=== PATIENT | male | born 1990 | race Caucasian/White ===

== ENCOUNTER 2024-08-28 16:12 | Observation (INO) ==
[2024-08-28] MEDS: NS 0.9% 1000 ml BAG 2,000 ML IV ONE (17:12)
[2024-08-28 17:22] LABS: Hematocrit 58.4 % (38-53); Hemoglobin 19.1 g/dL (13.2-16.3); Mean Corpuscular Hgb Conc 32.7 g/dL (31-36); Mean Platelet Volume 9.5 fL (7.5-11.2); Platelet Count 206 10^3/uL (150-450); Red Blood Count 6.57 10^6/uL (4.06-5.63); White Blood Count 18.3 10^3/uL (3.6-10.2)
[2024-08-28 17:27] LABS: INR 1.12 (0.85-1.14)
[2024-08-28] MEDS: methylPREDNISolone SOD SUCC 125 mg 2 ML VIAL IV ONE (17:35)
[2024-08-28] MEDS: EPINEPHrine Anaphylaxis SYR CERTADOSE SYR KIT IM ONE (17:36)
[2024-08-28 18:02] LABS: ALT 16 U/L (7-52); Albumin/Globulin Ratio 1.9 (1-3); Alkaline Phosphatase 89 U/L (35-149); Blood Urea Nitrogen 23 mg/dL (6-24); C Reactive Protein 58.31 mg/L (<8.01); CO2 Carbon Dioxide 19 mmol/L (22-32); Chloride 101 mmol/L (101-111); Creatinine, Serum 1.22 mg/dL (0.67-1.17); Globulin 2.1 g/dL (2-4); Glucose 162 mg/dL (70-100); Sodium 132 mmol/L (135-145); Total Bilirubin 0.5 mg/dL (0.2-1.0); Total Protein 6.1 g/dL (6.4-8.9); eGFR CKD-EPI 79.8 (>60)
[2024-08-28 18:04] LABS: ABS Eosinophils 0.1 10^3/uL (0.0-0.5); ABS Lymphocytes 1.2 10^3/uL (1.0-4.8); ABS Monocytes 1.6 10^3/uL (0.0-1.1); ABS Neutrophils 15.4 10^3/uL (1.5-7.6); ABS Nucleated RBC 0.02 10^3/ul; Eosinophil % 0.7 %; Lymphocyte % 6.4 %; Nucleated Red Blood Cells % 0.1 %/100WBC (0.0-0.8)
[2024-08-28 18:09] LABS: HCG Pregnancy < 0.60 mIU/mL
[2024-08-28 18:22] LABS: Anion Gap 12 mmol/L (2-16)
[2024-08-28] MEDS: Iohexol 350 (CONTRAST) 500 ML MDV IV ONE (18:45)
[2024-08-28 20:22] LABS: Potassium Redraw 3.8 mmol/L (3.5-5.0)
[2024-08-28 20:36] LABS: Urine Appearance Clear; Urine Bilirubin Negative (Negative); Urine Blood Negative (Negative); Urine Color Light-Yellow; Urine Glucose Negative (Negative); Urine Ketones Negative (Negative); Urine Nitrite Negative (Negative); Urine Protein Negative (Negative); Urine Specific Gravity 1.049 (1.002-1.030); Urine Urobilinogen Negative (Negative); Urine pH 6.5 (5.0-8.0)
[2024-08-28] MEDS: Famotidine IV 10 MG/ML 2 ml VIAL (20 mg) IV SLOW PU SCH (21:11)
[2024-08-28] MEDS: Nicotine PATCH 21 MG/24 HR PATCH TRANSDERM SCH (23:01)
[2024-08-29] MEDS: Morphine 4 MG/ML VIAL (1 ml) IV PRN (02:32)
[2024-08-29 04:59] LABS: ABS Eosinophils 0.1 10^3/uL (0.0-0.5); ABS Lymphocytes 0.9 10^3/uL (1.0-4.8); ABS Monocytes 0.8 10^3/uL (0.0-1.1); ABS Neutrophils 9.4 10^3/uL (1.5-7.6); ABS Nucleated RBC 0.01 10^3/ul; Eosinophil % 1.1 %; Hematocrit 46.4 % (38-53); Hemoglobin 15.7 g/dL (13.2-16.3); Lymphocyte % 8.2 %; Mean Corpuscular Hemoglobin 29.1 pg (27-33); Mean Corpuscular Hgb Conc 33.8 g/dL (31-36); Mean Corpuscular Volume 86.1 fL (80-97); Mean Platelet Volume 9.5 fL (7.5-11.2); Nucleated Red Blood Cells % 0.1 %/100WBC (0.0-0.8); Platelet Count 184 10^3/uL (150-450); Red Blood Count 5.39 10^6/uL (4.06-5.63); Red Cell Distribution Width 13.5 % (12-17); White Blood Count 11.2 10^3/uL (3.6-10.2)
[2024-08-29 05:51] LABS: Calcium 8.1 mg/dL (8.6-10.3); Creatinine, Serum 0.8 mg/dL (0.67-1.17); Magnesium 1.5 mg/dL (1.9-2.7); Potassium 4.3 mmol/L (3.5-5.0); eGFR CKD-EPI 119.1 (>60)
[2024-08-29] MEDS: Magnesium Sulf 4 GM/100 ML IV 4,000 MG/100 ML BAG IVPB ONE (08:02)
[2024-08-29] MEDS: Nicotine GUM 4MG FRUIT FLAVOR PO PRN (10:18)
[2024-08-29 11:14] VITALS: BP 108/61
[2024-08-30 14:57] LABS: Erythropoietin 4.9 mIU/mL (2.6 - 18.5)
== END 2024-08-29 16:45 | disposition home or self-care (01) ==
LOC: ED 16:12 → EDHOLD 18:20 → INTOOBSV 18:20 → ICU 19:18
PROVIDERS: ADMIT Student in an Organized Health Care Education/Training Program; ATTEND Internal Medicine Critical Care Medicine